=== PATIENT | male | born 1990 | race Caucasian/White ===

== ENCOUNTER 2016-10-15 11:34 | Emergency (ER) | payer OTHER ==
[2016-10-15] MEDS ORDERED: ALEVE220 M4 PO (11:48)
== END 2016-10-15 12:45 ==
LOC: EDMED 11:34
DX: S52.124A Nondisplaced fracture of head of right radius, initial encounter for closed fracture (principal); J45.909 Unspecified asthma, uncomplicated; F17.200 Nicotine dependence, unspecified, uncomplicated; W17.89XA Other fall from one level to another, initial encounter; Y92.410 Unspecified street and highway as the place of occurrence of the external cause